=== PATIENT | male | born 1975 | race Caucasian/White ===

== ENCOUNTER 2020-07-24 16:23 | Emergency (ER) | payer MEDICAID ==
[~2020-07-24] VITALS: Ht 175.3 cm; Wt 88.0 kg
[2020-07-24 17:01] VITALS: Ht 175.3 cm; Wt 88.0 kg
[2020-07-24 19:25] VITALS: BP 152/82
== END 2020-07-24 19:25 | disposition home or self-care (01) ==
LOC: ED 16:23
DX: G89.29 Other chronic pain (principal); M25.572 Pain in left ankle and joints of left foot; R22.42 Localized swelling, mass and lump, left lower limb; I10 Essential (primary) hypertension; E78.00 Pure hypercholesterolemia, unspecified
CPT/HCPCS: Q0092